=== PATIENT | female | born 1995 | race Caucasian/White ===

== ENCOUNTER 2016-08-27 10:00 | Outpatient (RCR) | payer OTHER ==
[~2016-08-27 10:00] MED LIST: GILDESS FE 1.5/1 TAB PO; ZANTAC 150MG T150 MG PO
== END 2016-10-28 | disposition home or self-care (01) ==
LOC: WSPT
DX: M54.2 Cervicalgia (principal)
CPT/HCPCS: G8981-GP; G8982-GP

== ENCOUNTER → 2016-10-29 14:28 | Outpatient (RCR) | payer OTHER | END | disposition home or self-care (01) | LOC: WSPT 08:00 | DX: M54.2 Cervicalgia (principal) ==

== ENCOUNTER 2017-10-17 15:58 | Emergency (ER) | payer OTHER ==
[~2017-10-17] VITALS: Ht 170.2 cm; Wt 81.8 kg
[2017-10-17 16:00] VITALS: BP 140/75; PULSE 78; TEMP 99.5
[2017-10-17 17:03] LABS: INFLUENZA A POSITIVE; INFLUENZA B NEGATIVE; STREP SCREEN NEGATIVE
== END 2017-10-17 17:37 | disposition home or self-care (01) ==
LOC: COL.ER 15:58
PROVIDERS: Nurse Practitioner
DX: J10.1 Influenza due to other identified influenza virus with other respiratory manifestations (principal)